=== PATIENT | female | born 1935 | race Caucasian/White ===

== ENCOUNTER 2016-05-09 10:13 | Outpatient (CLI) | payer OTHER ==
[2015-09-13 11:01] VITALS: BMI 38.7
== END 2016-05-09 10:14 | disposition home or self-care (01) ==
LOC: AMBL 10:13
PROVIDERS: ATTEND Internal Medicine Geriatric Medicine
DX: J44.9 Chronic obstructive pulmonary disease, unspecified (principal); Z99.81 Dependence on supplemental oxygen

== ENCOUNTER 2016-08-14 12:40 | Outpatient (CLI) ==
[2015-09-13 11:01] VITALS: BMI 38.7
== END 2016-08-14 12:41 | disposition home or self-care (01) ==
LOC: AMBL 12:40
PROVIDERS: ATTEND Internal Medicine
DX: N19 Unspecified kidney failure (principal); I50.9 Heart failure, unspecified; I99.8 Other disorder of circulatory system; I48.91 Unspecified atrial fibrillation; Z99.81 Dependence on supplemental oxygen; Z86.73 Personal history of transient ischemic attack (TIA), and cerebral infarction without residual deficits; Z96.649 Presence of unspecified artificial hip joint